=== PATIENT | male | born 1985 | race Caucasian/White ===

== ENCOUNTER 2017-03-03 14:26 | Emergency (ER) | payer OTHER, SELFPAY ==
[~2017-03-03] VITALS: Ht 167.6 cm; Wt 68.0 kg
[2017-03-03] MEDS ORDERED: SODIUM CHLORIDE 0.9% 1,000ML IVBOLUS ONE (16:30)
[2017-03-03] MEDS ORDERED: SODIUM CHLORIDE FLUSH 10ML SYR IVF ONE (16:30)
[2017-03-03] MEDS ORDERED: PLEASE ENTER ALLERGIES MC SCH ×2 (16:30)
[2017-03-03] MEDS ORDERED: ONDANSETRON 2MG/ML, 2ML IVPush ONE (16:30)
[2017-03-03] MEDS ORDERED: HYDROmorphone 1 MG/ML, 1ML IVPush PRN (16:30)
[2017-03-03 16:32] LABS: ASPARTATE AMINO TRANSFERASE 19 U/L (15-37); BLOOD UREA NITROGEN 15 mg/dL (7-18)
[2017-03-03] MEDS ORDERED: ONDANSETRON 2MG/ML, 2ML ONE (16:49)
[2017-03-03] MEDS ORDERED: HYDROmorphone 1 MG/ML, 1ML ONE ×2 (16:49→18:46)
[2017-03-03] MEDS ORDERED: PROM50TA4 PO (17:03)
[2017-03-03] MEDS ORDERED: INSU100V8 SQ (17:03)
[2017-03-03] MEDS ORDERED: [UNRECOGNIZED DRUG - OTHER] SQ (17:03)
[2017-03-03 17:30] VITALS: BP 115/70
== END 2017-03-03 18:08 | disposition home or self-care (01) ==
LOC: ED 18:02
DX: R10.31 Right lower quadrant pain (principal); R10.13 Epigastric pain; E10.65 Type 1 diabetes mellitus with hyperglycemia; F12.10 Cannabis abuse, uncomplicated
CPT/HCPCS: 36415; 74177; 80053; 81003; 83690; 85025; 96374; 96375; 99285; J1170; J2405; J7030